=== PATIENT | female | born 1950 | race Caucasian/White ===

== ENCOUNTER 2023-03-02 16:07 | Outpatient (CLI) | payer OTHER, SELFPAY | END 2023-03-02 16:08 | disposition home or self-care (01) | PROVIDERS: PCP Family Medicine; Visit Provider Family Medicine | DX: Z13.29 Encounter for screening for other suspected endocrine disorder (principal); Z13.21 Encounter for screening for nutritional disorder | CPT/HCPCS: 80053; 82607; 84439; 84443 ==

== ENCOUNTER 2023-03-22 13:27 | Outpatient (CLI) | payer OTHER, SELFPAY ==
--- NOTE | 2023-03-22 14:00 | CRLHL7_ITS ---
For Patients: As a result of the Century Cures Act, medical imaging exams and procedure reports are released immediately into your electronic medical record. You may view this report before your referring provider. If you have questions, please contact your health care provider. Indication: PAD Eval Comparison: None Technique: Routine duplex arterial examination of bilateral lower extremities including 2D and spectral analysis, and color Doppler imaging was performed. Findings: In the right lower extremity there are monophasic waveforms in the common femoral artery, profunda femoral artery, superficial femoral artery, and popliteal artery. Similarly, at the ankle, there are monophasic waveforms in the posterior tibial artery, and dorsalis pedis arteries. No elevated velocities. In the left lower extremity there are monophasic waveforms within the common femoral artery, profunda femoral artery, superficial femoral artery, and popliteal artery. Similarly, at the ankle, there are monophasic waveforms in the posterior tibial artery, and dorsalis pedis arteries. No elevated velocities. Impression: Monophasic waveforms throughout the arterial runoff bilaterally. No elevated velocities to suggest focal high-grade stenosis. Dictated by Walt Yoder MD @ 03/23/2023 10:15:17 AM (Electronically Signed)
== END 2023-03-22 13:28 | disposition home or self-care (01) ==
PROVIDERS: PCP Family Medicine; Visit Provider Family Medicine
DX: I73.9 Peripheral vascular disease, unspecified (principal)
CPT/HCPCS: 93926

== ENCOUNTER 2023-04-16 12:50 | Outpatient (CLI) | payer OTHER, SELFPAY | END 2023-04-16 12:51 | disposition home or self-care (01) | LOC: US 12:52 | PROVIDERS: PCP Family Medicine; Visit Provider Family Medicine | DX: I73.9 Peripheral vascular disease, unspecified (principal); R20.0 Anesthesia of skin | CPT/HCPCS: 93922 ==

== ENCOUNTER 2023-05-11 10:38 | Outpatient (CLI) | payer OTHER, SELFPAY | END 2023-05-11 10:39 | disposition home or self-care (01) | PROVIDERS: PCP Family Medicine; Visit Provider Family Medicine | DX: E78.00 Pure hypercholesterolemia, unspecified (principal); I10 Essential (primary) hypertension; E03.9 Hypothyroidism, unspecified | CPT/HCPCS: 80053; 80061; 84443 ==

== ENCOUNTER 2023-06-14 11:44 | Outpatient (CLI) | payer OTHER, SELFPAY | END 2023-06-14 11:45 | disposition home or self-care (01) | PROVIDERS: PCP Family Medicine; Visit Provider Family Medicine | DX: E78.00 Pure hypercholesterolemia, unspecified (principal); Z13.29 Encounter for screening for other suspected endocrine disorder | CPT/HCPCS: 80076; 84443 ==

== ENCOUNTER 2023-07-02 11:20 | Outpatient (CLI) | payer OTHER, SELFPAY | END 2023-07-02 11:21 | disposition home or self-care (01) | LOC: LKVREF 11:28 | PROVIDERS: PCP Family Medicine; Visit Provider Family Medicine | DX: Z98.890 Other specified postprocedural states (principal) | CPT/HCPCS: 80048 ==

== ENCOUNTER 2023-10-16 13:14 | Outpatient (CLI) | payer OTHER, SELFPAY | END 2023-10-16 13:15 | disposition home or self-care (01) | PROVIDERS: PCP Family Medicine; Visit Provider Family Medicine | DX: E03.9 Hypothyroidism, unspecified (principal); D75.89 Other specified diseases of blood and blood-forming organs; Z13.21 Encounter for screening for nutritional disorder | CPT/HCPCS: 82607; 82746; 84443 ==

== ENCOUNTER 2023-11-20 10:51 | Outpatient (CLI) | payer OTHER, SELFPAY | END 2023-11-20 10:52 | disposition home or self-care (01) | LOC: NFLDREF 11-23 11:21 | PROVIDERS: PCP Family Medicine; Referring Provider Family Medicine; Visit Provider Family Medicine | DX: E87.6 Hypokalemia (principal) | CPT/HCPCS: 84132 ==

== ENCOUNTER 2024-03-24 11:01 | Outpatient (CLI) | payer OTHER, SELFPAY | END 2024-03-24 11:02 | disposition home or self-care (01) | PROVIDERS: PCP Family Medicine; Visit Provider Family Medicine | DX: M81.0 Age-related osteoporosis without current pathological fracture (principal); I10 Essential (primary) hypertension; E78.00 Pure hypercholesterolemia, unspecified; E03.9 Hypothyroidism, unspecified | CPT/HCPCS: 80053; 80061; 84443 ==

== ENCOUNTER 2024-05-01 09:04 | Outpatient (CLI) | payer OTHER, SELFPAY ==
--- NOTE | 2024-05-01 10:58 | P.ANES_ITS ---
Anesthesia Charges Start Date/Time Anesthesia Start Date: 05/01/24 Anesthesia Start Time: 10:05 Stop Date/Time Anesthesia Stop Date: 05/01/24 Anesthesia Stop Time: 11:00 Summary Extremes of Age - Over 70 or under 1: COMPUTER ENGINEERING TECHNICIAN Coding CPT Codes CPT Codes: ANES LWR INTST NDSC NOS - [id number] ([id number]) P3 - PATIENT W/SEVERE SYS DISEASE, QX - COMPUTER ENGINEERING TECHNICIAN SVC W/ MD MED DIRECTION, QK - PRODUCT SAFETY TESTER 2-4 CNCRNT ANES PROC Additional Codes: Summary - Extremes of Age - Over 70 or under 1: COMPUTER ENGINEERING TECHNICIAN ([id number])
--- NOTE | 2024-05-01 10:58 | W.ANESCHARGE ---
Anesthesia Charges Start Date/Time Anesthesia Start Date: 05/01/24 Anesthesia Start Time: 10:05 Stop Date/Time Anesthesia Stop Date: 05/01/24 Anesthesia Stop Time: 11:00 Summary Extremes of Age - Over 70 or under 1: CONCRETE ENGINEER Coding CPT Codes CPT Codes: ANES LWR INTST NDSC NOS - [id number] ([id number]) P3 - PATIENT W/SEVERE SYS DISEASE, QX - CONCRETE ENGINEER SVC W/ MD MED DIRECTION, QK - LEG BREAKER 2-4 CNCRNT ANES PROC Additional Codes: Summary - Extremes of Age - Over 70 or under 1: CONCRETE ENGINEER ([id number])
--- NOTE | 2024-05-01 11:05 | P.ANES_ITS ---
Anesthesia Charges Start Date/Time Anesthesia Start Date: 05/01/24 Anesthesia Start Time: 10:05 Stop Date/Time Anesthesia Stop Date: 05/01/24 Anesthesia Stop Time: 11:00 Summary Extremes of Age - Over 70 or under 1: MDA Coding CPT Codes CPT Codes: ANES LWR INTST NDSC NOS - [id number] ([id number]) P3 - PATIENT W/SEVERE SYS DISEASE, QK - TRANSLITERATOR 2-4 CNCRNT ANES PROC, QX - CONE TREATER SVC W/ MD MED DIRECTION Additional Codes: Summary - Extremes of Age - Over 70 or under 1: MDA ([id number])
--- NOTE | 2024-05-01 11:05 | W.ANESCHARGE ---
Anesthesia Charges Start Date/Time Anesthesia Start Date: 05/01/24 Anesthesia Start Time: 10:05 Stop Date/Time Anesthesia Stop Date: 05/01/24 Anesthesia Stop Time: 11:00 Summary Extremes of Age - Over 70 or under 1: MDA Coding CPT Codes CPT Codes: ANES LWR INTST NDSC NOS - [id number] ([id number]) P3 - PATIENT W/SEVERE SYS DISEASE, QK - BIT AND SHANK DEPARTMENT SUPERVISOR 2-4 CNCRNT ANES PROC, QX - NURSING TECHN SVC W/ MD MED DIRECTION Additional Codes: Summary - Extremes of Age - Over 70 or under 1: MDA ([id number])
== END 2024-05-01 09:05 | disposition home or self-care (01) ==
LOC: OP CLINIC 09:05
PROVIDERS: PCP Family Medicine; Visit Provider Surgery
DX: R19.5 Other fecal abnormalities (principal); D12.0 Benign neoplasm of cecum; D12.2 Benign neoplasm of ascending colon; D12.3 Benign neoplasm of transverse colon
CPT/HCPCS: 00811; 45381; 45385; 99100; J2704

== ENCOUNTER 2024-06-12 12:39 | Outpatient (CLI) | payer OTHER, SELFPAY ==
--- NOTE | 2024-06-12 13:00 | CRLHL7_ITS ---
For Patients: As a result of the Century Cures Act, medical imaging exams and procedure reports are released immediately into your electronic medical record. You may view this report before your referring provider. If you have questions, please contact your health care provider. INDICATION: Lung cancer screening. TECHNIQUE: Low-dose lung cancer screening non-contrast CT chest. Dose reduction techniques were used. COMPARISON: None. FINDINGS: NODULES: 4 millimeter left lower lobe nodule 3/100 LUNGS AND PLEURA: Emphysema. MEDIASTINUM: Median sternotomy. Lingular atelectasis. CORONARY ARTERY CALCIFICATION: Present. LIMITED UPPER ABDOMEN: Normal. MUSCULOSKELETAL: Normal. IMPRESSION: 1. 4 millimeter pulmonary nodule. LUNG-RADS CATEGORY: 2: Benign. RADIOLOGIST RECOMMENDATION: Continue annual screening with low-dose CT chest in 12 months. Please note that all CT scans at this facility use dose modulation, iterative reconstruction, and/or weight-based dosing when appropriate to reduce radiation dose to as low as reasonably achievable. Dictated by Tabby Avery MD @ 06/15/2024 7:04:44 AM (Electronically Signed)
--- NOTE | 2024-06-12 13:30 | CRLHL7_ITS ---
For Patients: As a result of the Century Cures Act, medical imaging exams and procedure reports are released immediately into your electronic medical record. You may view this report before your referring provider. If you have questions, please contact your health care provider. DXA BONE MINERAL DENSITY STUDY Current height (in): 63. Weight (lb): 145. Menopause age: 40. Ethnicity: White. 1. Have you had a previous hip or vertebral fracture? No. 2. Have you had any fractures during your adult life which did not result from significant trauma (e.g., auto accident)? Yes. 3. Did either of your parents have a hip fracture? No. 4. Do you smoke? No. 5. Have you ever taken Glucocorticoids? No. 6. Do you have rheumatoid arthritis? No. 7. Do you have secondary osteoporosis? No. 8. Do you drink 3 or more alcoholic drinks per day? Yes. 9. Are you being treated for osteoporosis? No. 10. Have you ever taken any of the following medications: Actonel, Evista, Fosamax, Miacalcin, Reclast, Boniva, Forteo, HRT (i.e. estrogen/hormone therapy), Protelos, Prolia, Vitamin D, Calcium, other ??? please specify. ANSWER: Yes, Fosamax, Vitamin D and Calcium. 11. Do you have any of the following medical conditions: Anorexia or bulimia, asthma or emphysema, end stage renal disease, hyperparathyroidism, any seizure disorders, cancer, inflammatory bowel diseases, hysterectomy, other ??? please specify. ANSWER: Yes, Hysterectomy and COPD. 12. What was your maximum height (inches)? 65. 13. Do you perform weight bearing exercise regularly? No. 14. Do you regularly consume dairy products? No. 15. Do you drink caffeinated beverages? Yes. 16. At what age did your period start? 15. 17. Are you premenopausal? No. 18. How many full term pregnancies have you had? 2. 19. Have you ever missed your period for more than 6 months in a row (not including or menopause)? No. TECHNIQUE: Bone mineral density study was performed using the [employer]. FINDINGS: The results of the study expressed as bone mineral density (BMD) are as follows: Lumbar spine L1 to L4: BMD: 0.821 g/cm2. T-score: -2.1. Z-score: 0.1. Neck Left: BMD: 0.585 g/cm2. T-score: -2.4. Z-score: -0.5. Right: BMD: 0.586 g/cm2. T-score: -2.4. Z-score: -0.5. Total Left: BMD: 0.709 g/cm2. T-score: -1.9. Z-score: -0.3. Right: BMD: 0.728 g/cm2. T-score: -1.8. Z-score: -0.2. IMPRESSION: Osteopenia. FRAX 10-year Fracture Risk Major Osteoporotic Fracture: 27 percent Hip Fracture: 8.0 percent Reported Risk Factors: [place] () Neck BMD=0.585, BMI=25.7, previous fracture, alcohol use. Laura Flores M.D. Diagnostic Radiologist [email or web address] [place] DW/Dictated by: Laura Flores MD @ 06/16/2024 6:34:00 AM (Electronically Signed)
--- NOTE | 2024-06-12 14:00 | CRLHL7_ITS ---
For Patients: As a result of the Century Cures Act, medical imaging exams and procedure reports are released immediately into your electronic medical record. You may view this report before your referring provider. If you have questions, please contact your health care provider. INDICATION: BILATERAL SCREENING MAMMOGRAM, ASYMPTOMATIC 73 Y/O FEMALE COMPARISON: NOT AVAILABLE TECHNIQUE: Digital mammogram in CC and MLO projections including computer-aided detection (CAD) and tomosynthesis. BREAST COMPOSITION: There are scattered areas of fibroglandular density. FINDINGS: No suspicious findings. ASSESSMENT: BI-RADS 1 Negative RECOMMENDATION: Annual screening mammogram. A lay language report of this examination will be provided to the patient. Dictated by: Walt Yoder MD @ 06/24/2024 09:58:42 (Electronically Signed)
== END 2024-06-12 12:40 | disposition home or self-care (01) ==
LOC: CT 12:40
PROVIDERS: PCP Family Medicine; Visit Provider Family Medicine
DX: Z12.2 Encounter for screening for malignant neoplasm of respiratory organs (principal); R91.8 Other nonspecific abnormal finding of lung field; Z87.891 Personal history of nicotine dependence; M81.0 Age-related osteoporosis without current pathological fracture; M85.89 Other specified disorders of bone density and structure, multiple sites; Z12.31 Encounter for screening mammogram for malignant neoplasm of breast
CPT/HCPCS: 71271; 77063; 77067; 77080

== ENCOUNTER 2024-09-22 11:53 | Outpatient (CLI) | payer OTHER, SELFPAY | END 2024-09-22 11:54 | disposition home or self-care (01) | LOC: LKVREF 11:53 | PROVIDERS: PCP Family Medicine; Visit Provider Family Medicine | DX: E87.6 Hypokalemia (principal); I10 Essential (primary) hypertension; E03.9 Hypothyroidism, unspecified; E78.00 Pure hypercholesterolemia, unspecified | CPT/HCPCS: 80053; 80061; 84443 ==